=== PATIENT | female | born 2000 | race African-American/Black ===

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

== ENCOUNTER 2020-04-27 13:21 | Emergency (ER) | payer OTHER ==
[2020-04-27 13:30] VITALS: BP 102/58; PULSE 53; TEMP 97.9; BMI 19.8
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
== END 2020-04-27 14:20 | disposition home or self-care (01) ==
LOC: JERFT 13:21
DX: S16.1XXA Strain of muscle, fascia and tendon at neck level, initial encounter (principal); S39.012A Strain of muscle, fascia and tendon of lower back, initial encounter
CPT/HCPCS: 99283-25

== ENCOUNTER 2020-09-14 14:53 | Emergency (ER) | payer OTHER ==
[2020-09-14 15:17] VITALS: BP 111/62; PULSE 80; TEMP 98.4; BMI 18.8
== END 2020-09-14 17:53 | disposition home or self-care (01) ==
LOC: JER 14:53
DX: J02.9 Acute pharyngitis, unspecified (principal)
CPT/HCPCS: 87070; 87880; 99283-25; C9803; U0003